=== PATIENT | female | born 1985 | race African-American/Black ===

== ENCOUNTER 2019-01-26 21:57 | Emergency (ER) | payer MEDICAID ==
[~2019-01-26] VITALS: Ht 165.1 cm; Wt 54.0 kg
[2019-01-26 23:45] VITALS: BP 112/79
== END 2019-01-27 02:51 | disposition left against medical advice (07) ==
LOC: ER 21:57
DX: F19.10 Other psychoactive substance abuse, uncomplicated (principal); Z53.21 Procedure and treatment not carried out due to patient leaving prior to being seen by health care provider